=== PATIENT | female | born 1965 | race American Indian/Alaskan Native ===

== ENCOUNTER 2019-09-14 17:09 | Emergency (ER) | payer OTHER ==
[2019-09-14 17:31] VITALS: BP 187/114
--- NOTE | 2019-09-14 21:36 | Emergency Department Report ---
Chief Complaint: Abdominal Pain Stated Complaint: BOWEL ISSUE Time Seen by Provider: 09/14/19 21:16 - HPI History of Present Illness: 54 year old -[place] male who presents to the emergency room for the third time for complaints of constipation. Patient was seen here on 09/07/2019 and was discharged with amlodipine for elevated blood pressure and stool softener. Patient returns back on 09/12/2019 for the same complaint. Patient at that time had a soapsuds enema and was discharged home to continue with medications. Patient reports that his constipation had improved on Tuesday and then it got worse again. Patient states he has been eating broccoli and drinking plenty of water. Patient states his tetanus. At 1 week. Patient reports his last bowel movement was on Tuesday. - Exam Vital Signs: Vital Signs 09/14/19 17:18 Temperature 97.9 F Pulse Rate 98 H Respiratory 20 Rate Blood Pressure 187/114 O2 Sat by Pulse 99 Oximetry Physical Exam: Patient's alert and oriented 3 no acute distress nontoxic in appearance HEENT patient has moist oral mucosa, EMOI, full range of motion of neck. Cardiac regular rate and rhythm no murmurs appreciated Lungs clear to auscultation bilateral Abdomen soft nondistended mild tenderness no guarding no rebound, Normal bowel sounds. Ambulatory without difficulties. MSE screening note: Focused history and physical exam performed. Due to findings the following was ordered: 54 year old -[place] male who presents to the emergency room for the third time for complaints of constipation. Patient was seen here on 09/07/2019 and was discharged with amlodipine for elevated blood pressure and stool softener. Patient returns back on 09/12/2019 for the same complaint. Patient at that time had a soapsuds enema and was discharged home to continue with medications. Patient reports that his constipation had improved on Tuesday and then it got worse again. Patient states he has been eating broccoli and drinking plenty of water. Patient states his tetanus. At 1 week. Patient reports his last bowel movement was on Tuesday. I discussed the patient that he can take [id number] magnesium citrate and to use [id number] MiraLAX. Patient be referred to gastroenterology for routine colonoscopy. ED Disposition for MSE Clinical Impression: Constipation Qualifiers: Constipation type: unspecified constipation type Qualified Code(s): K59.00 - Constipation, unspecified Disposition: Z- MED SCREENING EXAM-LEFT Is pt being admited?: No Does the pt Need Aspirin: No Condition: Stable Instructions: Abdominal Pain (ED), Constipation (ED), High Fiber Diet (ED) Additional Instructions: Try over the counter Magnesium Citrate once and Miralax daily. Follow up with a drivability technician . Referrals: [facility] [Provider Group] - 3-5 Days LAURA WILSON MD [Staff Physician] - 3-5 Days
== END 2019-09-14 21:55 | disposition left against medical advice (07) ==
LOC: ED 17:09
DX: K59.00 Constipation, unspecified (principal)